=== PATIENT | female | born 1960 | race Caucasian/White ===

== ENCOUNTER 2018-04-22 12:07 | Inpatient (IN) | payer OTHER ==
[2018-04-22 13:32] VITALS: BMI 20.9
--- NOTE | 2018-04-22 13:56 | HP ---
CIWA Score Nausea/Vomitin-No Nausea/No Vomiting Muscle Tremors: 4-Moderate,w/Arms Extend Anxiety: 3 Agitation: 3 Paroxysmal Sweats: 3 Orientation: 0-Oriented Tacttile Disturbances: 0-None Auditory Disturbances: 0-None Visual Disturbances: 0-None Headache: 1-Very Mild CIWA-Ar Total Score: 14 - Admission Criteria OASAS Guidelines: Admission for Medically Managed Detox: Requires at least one of the followin. CIWA greater than 12 2. Seizures within the past 24 hours 3. Delirium tremens within the past 24 hours 4. Hallucinations within the past 24 hours 5. Acute intervention needed for co occurring medical disorder 6. Acute intervention needed for co occurring psychiatric disorder 7. Severe withdrawal that cannot be handled at a lower level of care (continued vomiting, continued diarrhea, abnormal vital signs) requiring intravenous medication and/or fluids 8. Admission ROS [facility] - HPI Chief Complaint: I want to quit drinking. Allergies/Adverse Reactions: Allergies Allergy/AdvReac Type Severity Reaction Status Date / Time No Known Allergies Allergy Verified 04/22/18 13:51 History of Present Illness: pt is a 57yr old female with a history of alcohol dependence seeking detox for treatment. This is her first time in our detox. Exam Limitations: No Limitations - Ebola screening Have you traveled outside of the country in the last 21 days: No Have you had contact with anyone from an Ebola affected area: No Have you been sick,other than usual withdrawal symptoms: No Do you have a fever: No - Review of Systems Constitutional: Chills, Diaphoresis, Loss of Appetite, Night Sweats, Changes in sleep EENT: reports: Tearing, Nose Congestion Respiratory: reports: Cough Cardiac: reports: Lightheadedness GI: reports: Constipated, Nausea, Poor Fluid Intake : reports: No Symptoms Reported Musculoskeletal: reports: Back Pain Integumentary: reports: Flushing, Sweating Neuro: reports: Headache, Tingling, Tremors Endocrine: reports: Excessive Sweating, Flushing, Intolerance to Cold, Intolerance to Heat Hematology: reports: No Symptoms Reported Psychiatric: reports: Judgement Intact, Mood/Affect Appropiate, Orientated x3, Agitated, Anxious Other Systems: Reviewed and Negative Patient History - Patient Medical History Hx Anemia: No Hx Asthma: No Hx Chronic Obstructive Pulmonary Disease (COPD): No Hx Cancer: No Hx Cardiac Disorders: No Hx Congestive Heart Failure: No Hx Hypertension: No Hx Hypercholesterolemia: No Hx Pacemaker: No HX Cerebrovascular Accident: No Hx Seizures: No Hx Dementia: No Hx Diabetes: No Hx Gastrointestinal Disorders: No Hx Liver Disease: No Hx Genitourinary Disorders: No Hx Sexually Transmitted Disorders: No Hx Renal Disease (ESRD): No Hx Thyroid Disease: No Hx Human Immunodeficiency Virus (HIV): No (pt denies) Hx Hepatitis C: No (pt denies) Hx Depression: Yes Hx Suicide Attempt: No (pt denies any S/H ID today; however did mention tried to cut self yrs ago.) Hx Bipolar Disorder: No Hx Schizophrenia: No - Patient Surgical History Past Surgical History: Yes Hx Orthopedic Surgery: Yes (right wrist sx) - PPD History Previous Implant?: No Documented Results: Negative w/o proof Implanted On Prior [facility] Admission?: Yes PPD to be Administered?: Yes - Reproductive History Patient is a Female of Child Bearing Age (11 -55 yrs old): No - Smoking Cessation Smoking history: Current every day smoker Have you smoked in the past 12 months: Yes Aproximately how many cigarettes per day: 10 Hx Chewing Tobacco Use: No Initiated information on smoking cessation: Yes 'Breaking Loose' booklet given: 04/22/18 - Substance & Tx. History Hx Alcohol Use: Yes Hx Substance Use: No Substance Use Type: Alcohol Hx Substance Use Treatment: Yes (last detox at [facility] 2012) - Substances Abused Alcohol Route: Oral Frequency: Daily Amount used: 1 to a fifth of tiffany walker vodka Age of first use: 26 Date of Last Use: 04/22/18 Family Disease History - Family Disease History Family Disease History: Diabetes: Mother (), Other: Father () Admission Physical Exam S - Vital Signs Vital Signs: Vital Signs - 24 hr 04/22/18 13:31 Temperature 97.9 F Pulse Rate 106 H Respiratory 17 Rate Blood Pressure 113/84 - Physical General Appearance: Yes: Appropriately Dressed, Moderate Distress, Thin, Tremorous, Irritable, Sweating, Anxious HEENTM: Yes: Normal Voice, Nasal Congestion, Rhinorrhea Respiratory: Yes: Lungs Clear, Normal Breath Sounds, No Respiratory Distress Neck: Yes: No masses,lesions,Nodules Breast: Yes: Within Normal Limits Cardiology: Yes: Regular Rhythm, Regular Rate, S1, S2 Abdominal: Yes: Normal Bowel Sounds, Non Tender, Flat Genitourinary: Yes: Within Normal Limits Back: Yes: Normal Inspection Musculoskeletal: Yes: Back pain Extremities: Yes: Normal Capillary Refill, Normal Inspection, Non-Tender, Tremors Neurological: Yes: Fully Oriented, Alert, Normal Response Integumentary: Yes: Normal Color, Diaphoresis Lymphatic: Yes: Within Normal Limits - Diagnostic (1) Alcohol dependence with uncomplicated withdrawal Current Visit: Yes Status: Chronic (2) Bipolar disorder Current Visit: Yes Status: Acute (3) Nicotine dependence Current Visit: Yes Status: Chronic Qualifiers: Nicotine product type: cigarettes Substance use status: uncomplicated Qualified Code(s): F17.210 - Nicotine dependence, cigarettes, uncomplicated Cleared for Admission [facility] - Detox or Rehab [facility] Level of Care: Medically Managed Detox Regimen/Protocol: Librium [facility] Breath Alcohol Content Breath Alcohol Content: 0.196 Urine Pregancy Test - Result Urine Test Results: Negative- NO Line Present Urine Drug Screen - Results Drug Screen Negative: Yes Inpatient Rehab Admission - Rehab Decision to Admit Inpatient rehab admission?: No
[2018-04-22] MEDS ORDERED: MAG HYDROX/AL HYDROX/SIMETH 30 ML UNIT-DOSE CUP PO PRN (14:16)
[2018-04-22] MEDS ORDERED: chlordiazePOXIDE HCL 25 MG CAPSULE PO PRN (14:16)
[2018-04-22] MEDS ORDERED: ACETAMINOPHEN 325 MG TABLET (FP) PO PRN (14:16)
[2018-04-22] MEDS ORDERED: MENTHOL/PHENOL 1 EACH UD MM PRN (14:16)
[2018-04-22] MEDS ORDERED: NICOTINE POLACRILEX 4 MG GUM BC PRN (14:16)
[2018-04-22] MEDS ORDERED: MAGNESIUM HYDROX 2400MG/30ML ORAL SUSPENSION 30 ML CUP PO PRN (14:16)
[2018-04-22] MEDS ORDERED: IBUPROFEN 400 MG TABLET (FP) PO PRN (14:16)
[2018-04-22] MEDS ORDERED: LOPERAMIDE HCL 2 MG CAPSULE PO PRN (14:16)
[2018-04-22] MEDS ORDERED: hydrOXYzine PAMOATE 50 MG CAPSULE (FP) PO PRN (14:16)
[2018-04-22] MEDS ORDERED: MAGNESIUM CITRATE 300 ML BOTTLE PO PRN (14:16)
[2018-04-22] MEDS ORDERED: guaiFENesin/D-METHORPHAN HB 10 ML UNIT-DOSE CUPS PO PRN (14:16)
[2018-04-22] MEDS ORDERED: P-EPHED 60MG/TRIPROLIDI 2.5MG TABLET PO PRN (14:16)
[2018-04-22] MEDS ORDERED: chlordiazePOXIDE HCL 25 MG CAPSULE PO ONE (17:30)
[2018-04-22] MEDS: chlordiazePOXIDE HCL 25 MG CAPSULE PO SCH ×2 (18:58→22:14)
[2018-04-22] MEDS ORDERED: MELATONIN 5 MG TABLETS PO PRN (22:00)
[2018-04-22] MEDS: THIAMINE HCL 100 MG TABLET (FP) PO SCH (22:13)
[2018-04-23] MEDS: chlordiazePOXIDE HCL 25 MG CAPSULE PO SCH ×4 (05:49→22:57)
--- NOTE | 2018-04-23 10:13 | CONSULT ---
[facility] Psychiatric Consult - Data Date of interview: 04/23/18 Admission source: [facility] Identifying data: This 57 years old H single mother of 6 ,resides with 2 children,supported by PA. Physical/Sexual Abuse/Trauma History: Patient denies. Mental Status Exam - Mental Status Exam Alert and Oriented to: Time, Place, Person Cognitive Function: Grossly Intact Patient Appearance: Unkempt Mood: Sad Affect: Mood Congruent, Labile Patient Behavior: Cooperative Speech Pattern: Clear Voice Loudness: Normal Thought Process: Goal Oriented Thought Disorder: Not Present Hallucinations: Denies Suicidal Ideation: Denies Homicidal Ideation: Denies Insight/Judgement: Fair Sleep: Difficulty falling asleep Appetite: Good Muscle strength/Tone: Normal Gait/Station: Normal Psychiatric Findings - Problem List ([place] 1, 2,3) (1) Bipolar disorder Current Visit: Yes Status: Acute (2) Alcohol dependence with uncomplicated withdrawal Current Visit: Yes Status: Chronic (3) Nicotine dependence Current Visit: Yes Status: Chronic Qualifiers: Nicotine product type: cigarettes Substance use status: uncomplicated Qualified Code(s): F17.210 - Nicotine dependence, cigarettes, uncomplicated - Initial Treatment Plan Initial Treatment Plan: TRazodone 50 mg po hs and Zoloft 100 mg po daily.
--- NOTE | 2018-04-23 10:25 | PN ---
S CIWA - CIWA Score Nausea/Vomitin-Mild Nausea/No Vomiting Muscle Tremors: 3 Anxiety: 2 Agitation: 3 Paroxysmal Sweats: 1-Minimal Palms Moist Orientation: 0-Oriented Tacttile Disturbances: 0-None Auditory Disturbances: 0-None Visual Disturbances: 0-None Headache: 1-Very Mild CIWA-Ar Total Score: 11 BHS Progress Note (SOAP) Subjective: tremor sweating restlessness Objective: 04/23/18 10:26 Vital Signs Temperature 96.9 F L 04/23/18 09:12 Pulse Rate 112 H 04/23/18 09:12 Respiratory Rate 18 04/23/18 09:12 Blood Pressure 101/77 04/23/18 09:12 O2 Sat by Pulse Oximetry (%) lab pending Assessment: 04/23/18 10:26 withdrawal sx constipation x 4 days denies pain but difficulty move bowel abdomen soft + bowel sounds no vomiting able to tolerate food and fluid well Plan: continue detox MOM if no effect Citra of Mag increase oral fluid fiber supplement
[2018-04-23] MEDS: PRENATAL VITAMINS W/ FOLIC ACID TABLET (FP) PO SCH (10:42)
[2018-04-23] MEDS: NICOTINE 21 MG/24 HOURS TOPICAL PATCH TD SCH (10:43)
[2018-04-23 10:58] LABS: HEMATOCRIT 29.7 % (32.4-45.2); HEMOGLOBIN 10.6 GM/dL (10.7-15.3); MCH 35.6 pg (25.7-33.7); MCHC 35.8 g/dl (32.0-36.0); MEAN CELL VOLUME 99.5 fl (80-96); MEAN PLT VOLUME 8.5 fl (7.5-11.1); PLATELET COUNT 162 K/MM3 (134-434); RBC 2.98 M/mm3 (3.60-5.2); RDW 13.7 % (11.6-15.6); WHITE BLOOD COUNT 3.6 K/mm3 (4.0-10.0)
[2018-04-23 11:13] LABS: ALBUMIN 3.1 g/dl (3.4-5.0); ALK PHOS 63 U/L (45-117); ANION GAP 13 MMOL/L (8-16); BILIRUBIN,TOTAL 0.8 mg/dL (0.2-1); BLOOD UREA NITROGEN 15 mg/dL (7-18); CALCIUM 8.6 mg/dL (8.5-10.1); CHLORIDE 95 mmol/L (98-107); CO2 28 mmol/L (21-32); CREATININE 0.9 mg/dL (0.55-1.3); GLUCOSE,RANDOM 130 mg/dL (74-106); SGOT/AST 83 U/L (15-37); SGPT/ALT 42 U/L (13-61); SODIUM 136 mmol/L (136-145)
[2018-04-23 11:45] LABS: POTASSIUM 2.3 mmol/L (3.5-5.1)
[2018-04-23] MEDS: SERTRALINE HCL 50 MG TABLET (FP) PO SCH (14:11)
[2018-04-23] MEDS: PSYLLIUM 5.85 GM PACKET PO SCH (14:14)
[2018-04-23] MEDS ORDERED: POTASSIUM CHLORIDE ORAL LIQUID 20 MEQ/15 ML PO ONE ×2 (15:00→19:00)
[2018-04-23] MEDS: THIAMINE HCL 100 MG TABLET (FP) PO SCH (22:57)
[2018-04-23] MEDS: traZODone HCL 50 MG TABLET (FP) PO SCH (22:57)
--- NOTE | 2018-04-24 03:48 | PN ---
[facility] Progress Note Note: SEEN FOR REPORTED FALL. CLIENT REPORTS SHE LOST HER BALANCE GETTING OUT OF BED AND FELL AGAINST HER NIGHT STAND HITTING HER BACK. DENIES ANY ACUTE PAIN/ INJURIES. REPORTS CHRONIC BACK PAIN 2/2 HX/O SCOLIOSIS. DENIES DIZZINESS, VISUAL DISTURBANCES, SOB, NAUSEA. PRESENTS A/O X3 NAD HEENT- NCAT, PERRLA SKIN- INTACT NO VISIBLE INJURIES EXTREMITIES- FROM W/O LIMITATIONS;UNSTEADY GAIT NOTED WHEN AMBULATING BACK/ SPINE- NL INSPECTION, NT, NO INJURIES NOTED Vital Signs - 8 hr 04/24/18 04/24/18 04/24/18 00:30 02:55 02:57 Temperature 96.9 F L 96.9 F L Pulse Rate 92 H 92 H Respiratory 18 16 16 Rate Blood Pressure 109/79 109/79 04/24/18 03:40 Temperature 97.9 F Pulse Rate 84 Respiratory 16 Rate Blood Pressure 102/71 Laboratory Tests 04/23/18 04/23/18 04/23/18 08:00 08:00 08:00 WBC 3.6 L RBC 2.98 L Hgb 10.6 L Hct 29.7 L MCV 99.5 H MCH 35.6 H MCHC 35.8 RDW 13.7 Plt Count 162 MPV 8.5 Sodium 136 Potassium 2.3 L* Chloride 95 L Carbon Dioxide 28 Anion Gap 13 BUN 15 Creatinine 0.9 Creat Clearance w eGFR > 60 Random Glucose 130 H Calcium 8.6 Total Bilirubin 0.8 AST 83 H ALT 42 Alkaline Phosphatase 63 Total Protein 6.0 L Albumin 3.1 L RPR Titer Nonreactive CLIENT RECEIVING K SUPPLEMENT S/P UNWITNESSED FALL FALL PROTOCOL #[address] CANE FOR ASSIST WITH AMBULATION CONT TO MONITOR CLINICALLY
[2018-04-24] MEDS: chlordiazePOXIDE HCL 25 MG CAPSULE PO SCH ×2 (06:00→11:17)
--- NOTE | 2018-04-24 06:39 | PN ---
[facility] Progress Note Note: REPORTED FALL IN LOUNGE. CLIENT DENIES INJURIES TO INCLUDE HITTING HER HEAD. BUT OTHER WITNESSES (CLIENTS ) REPORTS CLIENT STRUCK HER HEAD WHEN SHE FELL. PRESENTS A/O X3 NAD HEENT- NCAT, PERRLA SKIN- INTACT NO VISIBLE INJURIES EXTREMITIES- FROM W/O LIMITATIONS;UNSTEADY GAIT NOTED WHEN AMBULATING BACK/ SPINE- NL INSPECTION, NT, NO INJURIES NOTED Vital Signs Temperature 97.9 F 04/24/18 06:35 Pulse Rate 74 04/24/18 06:35 Respiratory Rate 18 04/24/18 06:35 Blood Pressure 115/56 L 04/24/18 06:35 O2 Sat by Pulse Oximetry (%) Laboratory Tests 04/23/18 04/23/18 04/23/18 08:00 08:00 08:00 WBC 3.6 L RBC 2.98 L Hgb 10.6 L Hct 29.7 L MCV 99.5 H MCH 35.6 H MCHC 35.8 RDW 13.7 Plt Count 162 MPV 8.5 Sodium 136 Potassium 2.3 L* Chloride 95 L Carbon Dioxide 28 Anion Gap 13 BUN 15 Creatinine 0.9 Creat Clearance w eGFR > 60 Random Glucose 130 H Calcium 8.6 Total Bilirubin 0.8 AST 83 H ALT 42 Alkaline Phosphatase 63 Total Protein 6.0 L Albumin 3.1 L RPR Titer Nonreactive CLIENT RECEIVING K SUPPLEMENT S/FALL P 57 Y.O. FEMALE ADMITTED ON 04/22/2018 FOR ALCOHOL DETOX S/P FALL X3. 2 FALLS OVERNIGHT. PMHX- DEPRESSION, SCOLIOSIS OF THE SPINE, ANEMIA, CHRONIC BACK PAIN. 1:1 OBSERVATION CANE FOR AMBULATION PREVIOUSLY ORDERED FALL PROTOCOL #1 TRANSFER TO ER FOR EVAL/ HEAD CT REPORTS GIVEN TO DR. ZUNIGA
[2018-04-24] MEDS: PSYLLIUM 5.85 GM PACKET PO SCH (11:15)
[2018-04-24] MEDS: NICOTINE 21 MG/24 HOURS TOPICAL PATCH TD SCH (11:16)
[2018-04-24] MEDS: PRENATAL VITAMINS W/ FOLIC ACID TABLET (FP) PO SCH (11:16)
[2018-04-24] MEDS: SERTRALINE HCL 50 MG TABLET (FP) PO SCH (11:16)
--- NOTE | 2018-04-24 15:11 | PN ---
S CIWA - CIWA Score Nausea/Vomitin-No Nausea/No Vomiting Muscle Tremors: 2 Anxiety: 2 Agitation: 1-Slight > Activity Paroxysmal Sweats: 1-Minimal Palms Moist Orientation: 0-Oriented Tacttile Disturbances: 0-None Auditory Disturbances: 0-None Visual Disturbances: 0-None Headache: 2-Mild CIWA-Ar Total Score: 8 BHS Progress Note (SOAP) Subjective: patient return from ER with negative ct head on fall protocol as pertinent 1:1 observation due to multiple unwitnessed fall with head injury patient is alert speech clearly unsteady gait patient stated that she preferred to go home to her grandson and daughter family members cook and care for her at home feeling better that mild tremor less sweating talking about her home that daughter and grandson are so caring for her Objective: 04/24/18 15:18 Vital Signs Temperature 97.1 F L 04/24/18 14:20 Pulse Rate 103 H 04/24/18 14:20 Respiratory Rate 18 04/24/18 14:20 Blood Pressure 104/71 04/24/18 14:20 O2 Sat by Pulse Oximetry (%) Laboratory Last Values WBC 3.6 K/mm3 (4.0-10.0) L 04/23/18 08:00 RBC 2.98 M/mm3 (3.60-5.2) L 04/23/18 08:00 Hgb 10.6 GM/dL (10.7-15.3) L 04/23/18 08:00 Hct 29.7 % (32.4-45.2) L 04/23/18 08:00 MCV 99.5 fl (80-96) H 04/23/18 08:00 MCH 35.6 pg (25.7-33.7) H 04/23/18 08:00 MCHC 35.8 g/dl (32.0-36.0) 04/23/18 08:00 RDW 13.7 % (11.6-15.6) 04/23/18 08:00 Plt Count 162 K/MM3 (134-434) 04/23/18 08:00 MPV 8.5 fl (7.5-11.1) 04/23/18 08:00 Sodium 136 mmol/L (136-145) 04/23/18 08:00 Potassium 3.3 mmol/L (3.5-5.1) L 04/24/18 08:38 Chloride 95 mmol/L (98-107) L 04/23/18 08:00 Carbon Dioxide 28 mmol/L (21-32) 04/23/18 08:00 Anion Gap 13 MMOL/L (8-16) 04/23/18 08:00 BUN 15 mg/dL (7-18) 04/23/18 08:00 Creatinine 0.9 mg/dL (0.55-1.3) 04/23/18 08:00 Creat Clearance w eGFR > 60 (>60) 04/23/18 08:00 Random Glucose 130 mg/dL (74-106) H 04/23/18 08:00 Calcium 8.6 mg/dL (8.5-10.1) 04/23/18 08:00 Total Bilirubin 0.8 mg/dL (0.2-1) 04/23/18 08:00 AST 83 U/L (15-37) H 04/23/18 08:00 ALT 42 U/L (13-61) 04/23/18 08:00 Alkaline Phosphatase 63 U/L (45-117) 04/23/18 08:00 Total Protein 6.0 g/dl (6.4-8.2) L 04/23/18 08:00 Albumin 3.1 g/dl (3.4-5.0) L 04/23/18 08:00 RPR Titer Nonreactive (NONREACTIVE) 04/23/18 08:00 lab noted low potassium continue K+ supplement Assessment: 04/24/18 15:18 withdrawal sx Plan: continue detox
[2018-04-24] MEDS: POTASSIUM CHLORIDE TABS 20 MEQ TABLET.ER (FP) PO SCH ×2 (15:23→17:57)
[2018-04-24] MEDS: chlordiazePOXIDE 5 MG CAPSULE PO SCH ×2 (17:57→22:56)
[2018-04-24] MEDS: traZODone HCL 50 MG TABLET (FP) PO SCH (22:56)
[2018-04-24] MEDS: THIAMINE HCL 100 MG TABLET (FP) PO SCH (22:56)
[2018-04-25] MEDS: chlordiazePOXIDE 5 MG CAPSULE PO SCH ×2 (06:09→11:40)
[2018-04-25] MEDS: POTASSIUM CHLORIDE TABS 20 MEQ TABLET.ER (FP) PO SCH ×2 (06:09→17:28)
[2018-04-25] MEDS: PRENATAL VITAMINS W/ FOLIC ACID TABLET (FP) PO SCH (11:39)
[2018-04-25] MEDS: NICOTINE 21 MG/24 HOURS TOPICAL PATCH TD SCH (11:39)
[2018-04-25] MEDS: SERTRALINE HCL 50 MG TABLET (FP) PO SCH (11:40)
[2018-04-25] MEDS: PSYLLIUM 5.85 GM PACKET PO SCH (11:40)
--- NOTE | 2018-04-25 14:19 | PN ---
[facility] Progress Note (SOAP) Subjective: Diarrhea. Objective: PATIENT A & O X 3, OBSERVED AMBULATING ON UNIT. PATIENT ABLE TO AMBULATE UNASSISTED AND WITHOUT APPARENT DIFFICULTY. IN NO ACUTE DISTRESS. PATIENT REPORTS THAT SHE FEELS OKAY TO AMBULATE WITHOUT ASSISTANCE ON UNIT. 04/25/18 14:14 Vital Signs Temperature 99.8 F H 04/25/18 09:29 Pulse Rate 99 H 04/25/18 09:29 Respiratory Rate 18 04/25/18 09:29 Blood Pressure 83/59 L 04/25/18 09:29 O2 Sat by Pulse Oximetry (%) Laboratory Tests 04/23/18 04/23/18 04/23/18 08:00 08:00 08:00 WBC 3.6 L RBC 2.98 L Hgb 10.6 L Hct 29.7 L MCV 99.5 H MCH 35.6 H MCHC 35.8 RDW 13.7 Plt Count 162 MPV 8.5 Sodium 136 Potassium 2.3 L* Chloride 95 L Carbon Dioxide 28 Anion Gap 13 BUN 15 Creatinine 0.9 Creat Clearance w eGFR > 60 Random Glucose 130 H Calcium 8.6 Total Bilirubin 0.8 AST 83 H ALT 42 Alkaline Phosphatase 63 Total Protein 6.0 L Albumin 3.1 L RPR Titer Nonreactive 04/24/18 08:38 WBC RBC Hgb Hct MCV MCH MCHC RDW Plt Count MPV Sodium Potassium 3.3 L Chloride Carbon Dioxide Anion Gap BUN Creatinine Creat Clearance w eGFR Random Glucose Calcium Total Bilirubin AST ALT Alkaline Phosphatase Total Protein Albumin RPR Titer LABS NOTED. REPEAT POTASSIUM LEVEL NOTED. POTASSIUM STILL NOTED TO BE BELOW NORMAL RANGE. 04/25/18 14:17 Assessment: 04/25/18 14:16 WITHDRAWAL SYMPTOMS. HYPOKELEMIA. Plan: CONTINUE DETOX. INCREASE DAILY PO FLUID INTAKE. CONTINUE K-DUR. RE-CHECK POTASSIUM LEVEL TOMORROW AM. D/C 1:1 CONTINUOUS OBSERVATION STATUS. PATIENT ADVISED TO GET UP FROM LYING / SITTING POSITIONS SLOWLY AND CAREFULLY AND TO USE CAUTION AND MAKE USE OF HANDRAILS WHEN AMBULATING ON UNIT. PATIENT VERBALIZED UNDERSTANDING OF RECOMMENDATIONS. PATIENT TO BE EVALUATED BY MEDICAL PROVIDER TOMORROW AM OR SOONER IF NECESSARY.
[2018-04-25] MEDS: chlordiazePOXIDE HCL 10 MG CAPSULE PO SCH ×2 (17:38→22:35)
[2018-04-25] MEDS: THIAMINE HCL 100 MG TABLET (FP) PO SCH (22:35)
[2018-04-25] MEDS: traZODone HCL 50 MG TABLET (FP) PO SCH (22:35)
[2018-04-26] MEDS: chlordiazePOXIDE HCL 10 MG CAPSULE PO SCH (06:23)
[2018-04-26] MEDS: POTASSIUM CHLORIDE TABS 20 MEQ TABLET.ER (FP) PO SCH (06:24)
[2018-04-26 09:23] VITALS: BP 113/60; PULSE 78; TEMP 96.2
[2018-04-26] MEDS: PRENATAL VITAMINS W/ FOLIC ACID TABLET (FP) PO SCH (09:43)
--- NOTE | 2018-04-26 16:40 | PN ---
S Progress Note (SOAP) Subjective: no new complaints offered c/o foot pain from walking Objective: 04/26/18 16:39 in bed fully dressed A & O x 3 Vital Signs Temperature 96.2 F L 04/26/18 09:23 Pulse Rate 78 04/26/18 09:23 Respiratory Rate 18 04/26/18 09:23 Blood Pressure 113/60 04/26/18 09:23 O2 Sat by Pulse Oximetry (%) Assessment: 04/26/18 16:39 detox completed Plan: for d/c
--- NOTE | 2018-04-26 16:45 | DS ---
[facility] Detox Discharge Summary Admission Date: 04/22/18 Discharge Date: 04/26/18 - History Additional Comments: pt for d/c today verbalizes feeling okay in spite of the ED visit yesterday States she will be going home where she lives with her daughter and who will help her States she does not like attending meetings due to previous experience which did not help her. Encouraged to do so as new experience may be different from prior one but pt decline. Will f/u with her PMD at [facility] on [address]. No prescription meds needed at this time. Pt given a cane to help her with ambulation to reduce her risks for falls Her insurance cab service called to help her get home - Physical Exam Results Vital Signs: Vital Signs Temperature 96.2 F L 04/26/18 09:23 Pulse Rate 78 04/26/18 09:23 Respiratory Rate 18 04/26/18 09:23 Blood Pressure 113/60 04/26/18 09:23 O2 Sat by Pulse Oximetry (%) - Treatment Hospital Course: Detox Protocol Followed, Detoxed Safely, Responded well, Discharged Condition Good - Medication Discharge Medications: Ambulatory Orders Sertraline HCl [Zoloft -] 100 mg PO DAILY 04/22/18 traZODone HCL [Desyrel -] 50 mg PO HS 04/22/18 - AMA Did Patient Leave Against Medical Advice: No
== END 2018-04-26 11:15 | disposition home or self-care (01) | DRG 775 ==
LOC: YASAS 12:07 → Y3N 17:15
PROVIDERS: ADMIT Surgery; ATTEND Surgery
PROC: HZ2ZZZZ Detoxification Services for Substance Abuse Treatment (ICD-10-PCS; principal; 2018-04-22)
DX: F10.230 Alcohol dependence with withdrawal, uncomplicated (principal); F17.210 Nicotine dependence, cigarettes, uncomplicated; F31.9 Bipolar disorder, unspecified; D64.9 Anemia, unspecified; E87.6 Hypokalemia; M54.5 Low back pain; G89.29 Other chronic pain; R26.89 Other abnormalities of gait and mobility; Z99.89 Dependence on other enabling machines and devices; S09.8XXA Other specified injuries of head, initial encounter; W06.XXXA Fall from bed, initial encounter; Z91.81 History of falling; Y93.89 Activity, other specified; Y92.230 Patient room in hospital as the place of occurrence of the external cause; Y99.8 Other external cause status
CPT/HCPCS: 36415; 71046-TC-FY; 80053; 84132; 85027; 86593

== ENCOUNTER 2018-04-24 09:03 | Emergency (ER) | payer OTHER ==
--- NOTE | 2018-04-24 09:22 | PDOC ---
History of Present Illness - General Stated Complaint: FALL Time Seen by Provider: 04/24/18 09:22 History Source: Patient Exam Limitations: No Limitations - History of Present Illness Initial Comments: Pt is a 57 yo F, with PMH of chronic alcohol use, depression, and insomnia, who is presenting from [facility] for evaluation after multiple falls. Pt presented to [facility] 2 days ago for alcohol detox (last drink 2 days ago before going to detox). Pt had a fall 2 days ago, after "trying to roll picker something from the ground and falling on my butt". She fell again this morning when she "got up from bed and slipped on the wood floor". Pt states she fell, but did not have LOC or hit her head. She has never had seizures in the past from alcohol withdrawal. Pt denies any recent fevers/chills, headache, vision changes, syncope, chest pain, palpitations, SOB, nausea/vomiting, abdominal pain, urinary symptoms, diarrhea/constipation, or leg swelling. She denies any recent changes to her medication, other than the addition of librium for detox. Social: Pt smokes 2-3 cigarettes per day and drinks 1 pint of liquor per day. She denies any other drug use. Pt denies any recent travel or sick contacts. Surgical: no relevant history. Family: no relevant history. 04/24/18 11:55 Past History - Travel Traveled outside of the country in the last 30 days: No Close contact w/someone who was outside of country & ill: No - Past Medical History Allergies/Adverse Reactions: Allergies Allergy/AdvReac Type Severity Reaction Status Date / Time No Known Allergies Allergy Verified 04/22/18 13:51 Home Medications: Ambulatory Orders Sertraline HCl [Zoloft -] 100 mg PO DAILY 04/22/18 traZODone HCL [Desyrel -] 50 mg PO HS 04/22/18 Anemia: No Asthma: No Cancer: No Cardiac Disorders: No CVA: No COPD: No CHF: No Dementia: No Diabetes: No GI Disorders: No Disorders: No HTN: No Hypercholesterolemia: No Kidney Stones: No Liver Disease: No Seizures: No Thyroid Disease: No - Surgical History Abdominal Surgery: No Appendectomy: No Cardiac Surgery: No Cholecystectomy: No Lung Surgery: No Neurologic Surgery: No Orthopedic Surgery: Yes (right wrist sx) - Suicide/Smoking/Psychosocial Hx Smoking History: Current every day smoker Have you smoked in the past 12 months: Yes Number of Cigarettes Smoked Daily: 10 'Breaking Loose' booklet given: 04/22/18 Hx Alcohol Use: Yes Drug/Substance Use Hx: No Substance Use Type: Alcohol Hx Substance Use Treatment: Yes (last detox at [facility] 2012) Review of Systems - Review of Systems Able to Perform ROS?: Yes Is the patient limited Sinhala proficient: No Constitutional: Yes: Weight Stable. No: Chills, Diaphoresis, Fever, Loss of Appetite, Weakness HEENTM: No: Blurred Vision, Recent change in vision, Double Vision, Nose Congestion, Throat Pain, Difficulty Swallowing Respiratory: No: Cough, Shortness of Breath Cardiac (ROS): No: Chest Pain, Edema, Irregular Heart Rate, Lightheadedness, Palpitations, Syncope, Chest Tightness ABD/GI: No: Constipated, Diarrhea, Nausea, Poor Appetite, Poor Fluid Intake, Vomiting : No: Burning, Dysuria, Pain, Urgency Musculoskeletal: No: Back Pain, Joint Pain Integumentary: No: Rash Neurological: No: Headache, Numbness, Paresthesia, Weakness, Unsteady Gait, Dizziness Psychiatric: No: Sleep Pattern Change, Change in Appetite Endocrine: No: Increased Urine, Change in Weight Hematologic/Lymphatic: No: Anemia, Blood Clots, Easy Bleeding, Easy Bruising All Other Systems: Reviewed and Negative *Physical Exam - Physical Exam Comments: Vitals stable, pt afebrile. Pt in NAD, normal body habitus. PE showed pt alert and oriented. No midline spinal tenderness, neck movement intact without tenderness. 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 Eyes PERRLA, EOMI. Oropharynx without erythema or exudates, no LAD b/l. No nasal congestion, hearing intact. Clear heart sounds, S1/S2, no JVD, b/l pedal edema, or heart murmur. Clear lung sounds, no respiratory distress, wheezes, crackles, or accessory muscle use. No abdominal or CVA tenderness to palpation, no rebound , no guarding. Abdomen soft, non-distended, and with normoactive bowel sounds. Skin without jaundice, bruises, or rash. 04/24/18 11:59 Medical Decision Making - Medical Decision Making Pt was seen at bedside, also will be seen by attending Dr. Cortes. Pt presenting from [facility] for evaluation after multiple falls. Pt presented to [facility] 2 days ago for alcohol detox. Pt had a fall 2 days ago, after "trying to roll picker something from the ground and falling on my butt". She fell again this morning when she "got up from bed and slipped on the wood floor". Pt states she fell, but did not have LOC or hit her head. She has never had seizures in the past from alcohol withdrawal. Pt denies any recent fevers/chills, headache, vision changes, syncope, chest pain, palpitations, SOB, nausea/vomiting, abdominal pain , urinary symptoms, diarrhea/constipation, or leg swelling. Vitals stable, pt afebrile. Pt in NAD, normal body habitus. PE showed pt alert and oriented. No midline spinal tenderness, neck movement intact without tenderness. 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 Eyes PERRLA, EOMI. Oropharynx without erythema or exudates, no LAD b/l. No nasal congestion, hearing intact. Clear heart sounds, S1/S2, no JVD, b/l pedal edema, or heart murmur. Clear lung sounds, no respiratory distress, wheezes, crackles, or accessory muscle use. No abdominal or CVA tenderness to palpation, no rebound , no guarding. Abdomen soft, non-distended, and with normoactive bowel sounds. Skin without jaundice, bruises, or rash. Considering mechanical fall, r/o bleed. Unlikely syncopal episode as pt remembers falling, story is consistent with mechanical fall. Will obtain ECG to r/o arrhythmia. Ordered work-up including non-contrast head CT (r/o bleed, fracture) and ECG per fall protocol. Providing 50 mg PO librium to prevent withdrawal. Will continue to reassess pt and monitor for symptomatic improvement. 04/24/18 10:16 ECG: NSR, intervals WNL. No TWIs or significant ST segment changes. No prior for comparison. Pt was taken for CT scan. 04/24/18 11:23 04/24/18 11:57 CT: moderate atrophy, no acute fracture or hemorrhage seen. Considering normal imaging, pt can be discharged to [facility] with follow-up. Pt advised to follow-up with PCP in 1-2 days. Strict return precautions provided with pt understanding. 04/24/18 12:01 *DC/Admit/Observation/Transfer Diagnosis at time of Disposition: Alcohol dependence with uncomplicated withdrawal Fall Qualifiers: Encounter type: initial encounter Qualified Code(s): W19.XXXA - Unspecified fall, initial encounter - Discharge Dispostion Disposition: CUSTODIAL FACILITY Condition at time of disposition: Good Decision to Admit order: No - Referrals - Patient Instructions Printed Discharge Instructions: How to Prevent Falls, DI for Drug or Alcohol Withdrawal Additional Instructions: You were seen in the ER today for evaluation after a fall. The results of your imaging today were normal. Please follow-up with your primary care doctor within 1-2 days to discuss your visit and make sure your symptoms have improved. Please return to the ER if you have any worsening pain, development of fevers or chills, loss of consciousness, inability to tolerate food or fluids , or any other concerns. - Post Discharge Activity
[2018-04-24 09:23] VITALS: TEMP 98.5; BMI 18.8
[2018-04-24] MEDS ORDERED: chlordiazePOXIDE HCL 25 MG CAPSULE PO ONE (09:54)
[2018-04-24] MEDS ORDERED: chlordiazePOXIDE HCL 25 MG CAPSULE ONE (10:02)
--- NOTE | 2018-04-24 12:07 | PDOC ---
Attending Attestation - Resident Resident Name: Manasa Silvestre - ED Attending Attestation I have performed the following: I have examined & evaluated the patient, The case was reviewed & discussed with the resident, I agree w/resident's findings & plan - HPI HPI: 04/24/18 12:12 The patient is a 57 year old female, with a significant past medical history of depression, chronic ETOH, who presents to the emergency department sent by [facility] detox facility for evaluation of falls since starting there on Saturday. She reports her last ETOH intake was Saturday. Denies fever, chills, chest pain, SOB, palpitation, dizziness, weakness, N, V, D , abdominal pain, bladder and bowel problems, leg swelling, No sick contacts or travel. No new changes in medications. Allergies: NKA Social history: ETOH. current everyday smoker. denies illicit drug use. Surgical Hx: right wrist sx - Physicial Exam PE: 04/24/18 12:12 NAD, well appearing, MMM, nl conjunctiva, anicteric; neck supple. no midline tenderness. lungs clear, RRR, abdomen soft nontender. TOVAR x4, no focal neuro deficits. No peripheral edema. normal color for ethnicity, WWP. no tremors - Medical Decision Making 04/24/18 12:12 VS wnl, reassuring. Patient was sent from [facility] after falls, no external signs of trauma patient is asymptomatic. No withdrawal symptoms here, covered with Librium for long-acting effects to prevent alcohol withdrawal syndrome. She is of normal and sound mental status normal neuro exam, gait stable here. CT head imaging with mild atrophy but no acute findings of the bleed Nexus spine negative for criteria, no imaging is indicated. she will be discharged back to her inpatient facility [facility] for continued detoxification.
[2018-04-24 12:50] VITALS: BP 116/86; PULSE 96
--- NOTE | 2018-04-24 15:40 | EKG ---
Test Reason : Blood Pressure : / mmHG Vent. Rate : 084 BPM Atrial Rate : 084 BPM P-R Int : 132 ms QRS Dur : 084 ms QT Int : 380 ms P-R-T Axes : -06 017 049 degrees QTc Int : 449 ms NORMAL SINUS RHYTHM NORMAL ECG NO PREVIOUS ECGS AVAILABLE Confirmed by WILLIE TAPIA MD ([id number]) on 04/24/2018 3:40:41 PM Referred By: Confirmed By:WILLIE TAPIA MD
== END 2018-04-24 13:15 | disposition other institution (70) ==
LOC: JER 09:03
DX: F10.230 Alcohol dependence with withdrawal, uncomplicated (principal); W01.0XXA Fall on same level from slipping, tripping and stumbling without subsequent striking against object, initial encounter; Y93.89 Activity, other specified; Y92.230 Patient room in hospital as the place of occurrence of the external cause; Y99.8 Other external cause status; G47.00 Insomnia, unspecified; F32.9 Major depressive disorder, single episode, unspecified; F17.210 Nicotine dependence, cigarettes, uncomplicated
CPT/HCPCS: 70450-TC; 93005; 93010; 99281-25